=== PATIENT | male | born 1985 | race American Indian/Alaskan Native ===

== ENCOUNTER 2017-01-25 03:06 | Emergency (ER) | payer OTHER ==
[~2017-01-25] VITALS: Ht 180.3 cm; Wt 86.9 kg
[2017-01-25] MEDS ORDERED: SODIUM CHLORIDE 0.9% 1000ML 1,000 ML IV STA (03:28)
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
[2017-01-25 03:56] LABS: BASO % 0.5 %; BASO ABS # 0.05 K/uL (0-0.2); COMPLETE YES; EOS % 7.4 %; HEMATOCRIT 44.8 % (42-52); IG% 0.3 %; MEAN CELL VOLUME 86.3 fL (80-100); MEAN CORPUSCULAR HEMOGLOBIN 29.7 pg (25-34); MEAN CORPUSCULAR HGB CONC 34.4 g/dl (32-36); MONO % 5.7 %; NEUT % 44.1 %; PLATELET COUNT 157 K/uL (130-400); RED BLOOD COUNT 5.19 M/uL (4.7-6.1); WHITE BLOOD COUNT 10.96 K/uL (4.8-10.8)
[2017-01-25 04:30] LABS: ALKALINE PHOSPHATASE 80 U/L (45-117); ALT/SGPT 53 U/L (12-78); AST/SGOT 63 U/L (15-37); BLOOD UREA NITROGEN 12 mg/dl (7-18); BUN/CREATININE RATIO 12.6 (10-20); CARBON DIOXIDE 21 mmol/L (21-32); CHLORIDE 108 mmol/L (98-107); CREATININE 0.94 mg/dl (0.60-1.40); GLUCOSE 106 mg/dl (70-99); POTASSIUM 3.5 mmol/L (3.5-5.1); SODIUM 142 mmol/L (136-145)
[2017-01-25] MEDS ORDERED: AMPICILLIN/SULBACTAM SOD INJ 3,000 MG in SODIUM CHLORIDE 0.9% 100ML 100 ML IV ONE (04:30)
[2017-01-25] MEDS ORDERED: OPTIRAY 320 IV PRN (05:30)
[2017-01-25 05:31] LABS: MANUAL MICROSCOPIC REQUIRED? NO; REVIEW REQ? NO; URINE APPEARANCE CLEAR (CLEAR); URINE BILIRUBIN NEG (NEG); URINE COLOR YELLOW; URINE NITRITE NEG (NEG); URINE SPECIFIC GRAVITY 1.009 (1.000-1.030); UROBILINOGEN NEG (NEG); ZZUR CULT IF INDIC CLEAN CATCH NO
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
[2017-01-25 06:59] LABS: CALCIUM 8.9 mg/dl (8.5-10.1)
[2017-01-25 07:05] VITALS: O2SAT 98; Ht 180.3 cm; Wt 86.9 kg
[2017-01-25] MEDS ORDERED: HYDR-3714 PO (07:19)
[2017-01-25] MEDS ORDERED: AMOX875T PO (07:19)
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
[2017-01-25] MEDS ORDERED: XYLOCAINE 1%/SOD BICARB 20 ML VIAL INFIL ONE ×2 (08:00→08:15)
--- NOTE | 2017-01-25 08:23 | EMERGENCY ROOM VISIT NOTE ---
ED Visit Note As requested by Dr. Jovel to repair a 2 cm laceration between the patient' s right index and middle fingers. PROCEDURE:Wound Repair: Complexity: Basic. Verbal consent was obtained after the risks and benefits were explained, including but not limited to bleeding, scarring, infection, pain, and bone/joint /nerve damage. The skin was prepped with betadine and a sterile field set. The wound was anesthetized with 2.0 ml of 1% buffered lidocaine. With direct pressure the bleeding subsided. Copious irrigation was performed using sterile saline. The wound was explored for foreign bodies and none found. Debridement was not performed. The wound edges were approximated using 5-0 Ethilon with 4 simple interrupted sutures. Hemostasis and excellent approximation was achieved. Antibacterial ointment and a sterile dressing applied. Detailed wound care instructions and signs and symptoms of infection reviewed with the patient. No complications and the patient tolerated the procedure well.
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
[2017-01-25] MEDS ORDERED: LIDOCAINE HCL 2% 2 ML VIAL (20MG/ML) ONE (09:43)
[2017-01-25] MEDS ORDERED: FENTANYL CITRATE INJ 50 MCG/1 ML 2 ML VIAL ONE ×3 (09:43→12:03)
[2017-01-25] MEDS ORDERED: ONDANSETRON INJ 2 MG/ML 2 ML VIAL ONE (09:43)
[2017-01-25] MEDS ORDERED: SUCCINYLCHOLINE CHLORIDE 20 MG/ML 10 ML VIAL IV ONE (09:43)
[2017-01-25] MEDS ORDERED: PROPOFOL IV EMULSION 10 MG/ML 20 ML VIAL IV ONE (09:43)
[2017-01-25] MEDS ORDERED: DEXAMETHASONE SOD INJ 4 MG/ML VIAL ONE ×2 (09:43→10:22)
[2017-01-25] MEDS ORDERED: ROCURONIUM BROMIDE 10 MG/ML 5 ML VIAL ONE (09:43)
[2017-01-25] MEDS ORDERED: LIDOCAINE/EPINEPHRINE 1% 20 ML VIAL ONE (09:55)
[2017-01-25] MEDS ORDERED: FENTANYL CITRATE INJ 50 MCG/1 ML 2 ML VIAL IV PRN (10:00)
[2017-01-25] MEDS ORDERED: HYDROmorphone INJ 1 MG/ML SYR IV PRN (10:00)
[2017-01-25] MEDS ORDERED: ATROPINE SULFATE 0.1 MG/ML 5ML SYR IV PRN (10:00)
[2017-01-25] MEDS ORDERED: EpHEDrine SULFATE INJ 50 MG/ML AMP IV PRN (10:00)
[2017-01-25] MEDS ORDERED: ONDANSETRON INJ 2 MG/ML 2 ML VIAL IV PRN (10:00)
[2017-01-25] MEDS ORDERED: CEFAZOLIN SOD 1 GM VIAL ONE (10:22)
[2017-01-25] MEDS ORDERED: BACITRACIN OINT 15 GM TUBE ONE (10:42)
[2017-01-25] MEDS ORDERED: NEOSTIGMINE METHYLSULFATE 5 MG/5 ML SYR ONE (11:19)
[2017-01-25] MEDS ORDERED: GLYCOPYRROLATE INJ 0.2 MG/ML VIAL ONE (11:19)
--- NOTE | 2017-01-25 11:28 | [facility] Operative Report ---
Operative Report Operative Date Jan 25, 2017. Pre-Operative Diagnosis open nasal fracture, septal fracture Post-Operative Diagnosis same Procedure(s) Performed REPAIR OF OPEN NASAL FRACTURE WITH STABILIZATION, OPEN REPAIR OF SEPTAL FRACTURE WITH STABILIZATION, AND CLOSURE OF COMPLEX NASAL LACERATIONS (2) Surgeon Dr. Lefty Watson Sample Dye Mixer Surgeon(s) none Estimated Blood Loss 25ml Findings 1. COMPLEX NASAL DORSUM STELLATE LACERATION (2CM) AND SIMPLE LINEAR RIGHT NASAL SILL LACERATION (5MM) 2. COMMINUTED DISPLACED BILATERAL NASAL BONE FRACTURES WITH SEVERELY DEPRESSED LEFT AND ELEVATED RIGHT NASAL BONE FX'S 3. SEVERE R>L DNS FROM SEPTAL FRACTURE Specimens none per surgeon Dr. Lefty Watson I attest to the content of the Intraoperative Record and any orders documented therein. Any exceptions are noted below.
--- NOTE | 2017-01-25 12:24 | Anesthesiology Progress Note ---
Anesthesia Post Op Note Date & Time Jan 25, 2017 at 12:24 Vital Signs Pain Intensity: 4 Vital Signs Past 12 Hours Date Time Temp Pulse Resp B/P (MAP) Pulse Ox O2 Delivery O2 Flow Rate FiO2 01/25/17 12:15 36.4 97 16 135/93 96 Room Air 01/25/17 12:05 96 16 130/79 94 Room Air 01/25/17 11:55 92 16 141/88 100 Mask 10 01/25/17 11:45 82 16 140/94 100 Mask 01/25/17 11:36 36.9 88 14 149/97 100 Mask 01/25/17 09:09 80 16 140/85 01/25/17 07:05 98 Room Air 01/25/17 06:28 103 16 137/85 98 Room Air 01/25/17 06:25 137/85 01/25/17 04:35 88 14 133/80 98 Room Air 01/25/17 04:35 133/80 01/25/17 03:08 36.6 93 16 133/79 96 Room Air 01/25/17 03:08 133/79 Notes Mental Status: alert / awake / arousable, participated in evaluation Pt Amnestic to Procedure: Yes Nausea / Vomiting: adequately controlled Pain: adequately controlled Airway Patency, RR, SpO2: stable & adequate BP & HR: stable & adequate Hydration State: stable & adequate Anesthetic Complications: no major complications apparent
[2017-01-25 12:29] VITALS: BP 145/87; PULSE 85; TEMP 36.4; O2SAT 94; O2SAT 95
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
== END 2017-01-25 09:55 | disposition home or self-care (01) ==
LOC: EDBD 03:06 → C.EDB 03:08
DX: S02.2XXB Fracture of nasal bones, initial encounter for open fracture (principal); S02.2XXA Fracture of nasal bones, initial encounter for closed fracture; S01.21XA Laceration without foreign body of nose, initial encounter; S61.210A Laceration without foreign body of right index finger without damage to nail, initial encounter; S61.212A Laceration without foreign body of right middle finger without damage to nail, initial encounter; V47.1XXA Car passenger injured in collision with fixed or stationary object in nontraffic accident, initial encounter; F10.129 Alcohol abuse with intoxication, unspecified; R07.81 Pleurodynia; F17.200 Nicotine dependence, unspecified, uncomplicated